=== PATIENT | female | born 1965 | race Caucasian/White ===

== ENCOUNTER 2022-10-28 14:31 | Emergency (ER) | payer SELFPAY ==
[~2022-10-28] VITALS: Ht 157.5 cm; Wt 65.8 kg
[2022-10-28 14:32] VITALS: BP 118/65
--- NOTE | 2022-10-28 18:42 | NUR ---
PATIENT LEFT WITHOUT BEING SEEN BY PA DOTY. NO FURTHER CARE PROVIDED FOR PATIENT.
== END 2022-10-28 18:42 | disposition left against medical advice (07) ==
LOC: MED 14:31
DX: S61.419A Laceration without foreign body of unspecified hand, initial encounter (principal); Z53.21 Procedure and treatment not carried out due to patient leaving prior to being seen by health care provider; W45.8XXA Other foreign body or object entering through skin, initial encounter; Y93.89 Activity, other specified; Y92.89 Other specified places as the place of occurrence of the external cause; Y99.8 Other external cause status